=== PATIENT | male | born 1995 | race African-American/Black ===

== ENCOUNTER 2020-05-16 06:22 | Day surgery (SDC) | payer OTHER ==
[~2020-05-16] VITALS: Ht 172.7 cm; Wt 88.8 kg
[2020-05-16] MEDS ORDERED: dexameTHASONE 10MG/1ML VIAL PRES.FREE (J1100 PER 1MG) ONE (06:23)
[2020-05-16] MEDS ORDERED: EPINEPHrine INJ 1 MG/ML 1ML AMP ONE (06:23)
[2020-05-16] MEDS ORDERED: ROPIvacaine 0.5% 30ML INJECTION (J2795 PER 1MG) ONE (06:23)
[2020-05-16] MEDS ORDERED: LIDOCAINE 1% MDV 20ML VIAL ONE (06:23)
[2020-05-16] MEDS ORDERED: MIDAZOLAM INJ 2MG/2ML VIAL (J2250 PER 1MG) As Ordered ONE ×2 (06:42→07:00)
[2020-05-16] MEDS ORDERED: fentaNYL 100 MCG/2 ML INJECTION (J3010) As Ordered ONE (06:42)
[2020-05-16] MEDS ORDERED: fentaNYL 250 MCG/5 ML INJECTION (J3010) As Ordered ONE (07:00)
[2020-05-16] MEDS ORDERED: ROCURONIUM BROMIDE 50 MG/5 ML VIAL As Ordered ONE (07:00)
[2020-05-16] MEDS ORDERED: LR 1,000 ML IV ONE (07:00)
[2020-05-16] MEDS ORDERED: ceFAZolin SOD 2 GM in IV 1 EA IV ONE (07:00)
[2020-05-16] MEDS ORDERED: LIDOCAINE 2% 100MG/5ML SDV (FOR ANES.) As Ordered ONE (07:00)
[2020-05-16] MEDS ORDERED: propofoL 200 MG/20 ML VIAL As Ordered ONE (07:00)
[2020-05-16] MEDS ORDERED: EPINEPHrine 1MG/ML INJ 30ML MD-VIAL As Ordered ONE (07:13)
[2020-05-16] MEDS: fentaNYL 100 MCG/2 ML INJECTION (J3010) IV SCH ×2 (07:21→07:32)
[2020-05-16] MEDS ORDERED: MIDAZOLAM INJ 2MG/2ML VIAL (J2250 PER 1MG) IV ONE (07:45)
[2020-05-16] MEDS ORDERED: LABETALOL 100MG/20ML VIAL As Ordered ONE (07:50)
[2020-05-16] MEDS ORDERED: ONDANSETRON 4MG/2ML VIAL As Ordered ONE (08:29)
[2020-05-16] MEDS ORDERED: KETOROLAC 60MG 2ML VIAL As Ordered ONE (08:29)
[2020-05-16] MEDS ORDERED: ACETAMINOPHEN 1000MG 100ML IV BTL (OFIRMEV) (J0131 PER 10MG) As Ordered ONE (08:29)
[2020-05-16] MEDS ORDERED: dexameTHASONE 4 MG/ML 1ML VIAL (J1100 PER 1MG) As Ordered ONE (08:29)
[2020-05-16] MEDS ORDERED: NEOSTIGMINE 10MG/10ML VIAL (J2710 PER 0.5MG) As Ordered ONE (09:37)
[2020-05-16] MEDS ORDERED: GLYCOPYRROLATE INJ 0.2 MG/ML 2 ML VIAL As Ordered ONE (09:37)
[2020-05-16] MEDS ORDERED: ONDANSETRON 4MG/2ML VIAL IV PRN (10:15)
[2020-05-16] MEDS ORDERED: METOCLOPRAMIDE INJ 10MG/2ML VIAL (J2765 PER 1) IV PRN (10:15)
[2020-05-16] MEDS ORDERED: LR 1,000 ML IV SCH ×2 (10:15)
[2020-05-16] MEDS ORDERED: PERCOCET 5MG/325MG TAB PO PRN (10:15)
[2020-05-16] MEDS ORDERED: fentaNYL 100 MCG/2 ML INJECTION (J3010) IV PRN (10:15)
[2020-05-16] MEDS ORDERED: ePHEDrine SULFATE 25 MG/5 ML(5MG/ML) SYRINGE As Ordered ONE (12:10)
[2020-05-16 12:52] VITALS: BP 158/102
--- NOTE | 2020-05-26 17:14 | RO ---
DATE OF SURGERY: 05/16/2020 PREOPERATIVE DIAGNOSES: 1. Right shoulder instability. 2. Right shoulder impingement. POSTOPERATIVE DIAGNOSES: 1. Right shoulder anterior and posterior labral tearing with instability. 2. Right shoulder impingement. 3. Right shoulder partial articular rotator cuff tear. 4. Right shoulder glenohumeral chondromalacia. PROCEDURE: 1. Right shoulder arthroscopic anterior and posterior labral repair. 2. Right shoulder arthroscopic rotator cuff debridement. 3. Right shoulder arthroscopic chondroplasty. 4. Right shoulder arthroscopic subacromial decompression including bursectomy and acromioplasty. SURGEON: Dr. Moses Hernadez COLOR CHECKER ROVING OR YARN: Chantale Al (Kate) ANESTHESIA: General, preoperative nerve block. INTRAVENOUS (IV) FLUIDS: Lactated Ringer's. ESTIMATED BLOOD LOSS: Arthrex 3 mm SutureTak times one and Arthrex 2.9 mm PushLock times four with labral tape. CLOSURE: Nylon. PROCEDURE: Patient identified in preoperative holding area, the right shoulder marked by myself. He had an interscalene nerve block by anesthesia. He was brought the operating room, placed supine on well-padded operating room (OR) table. General anesthesia was induced. Exam under anesthesia revealed 170 degrees of forward flexion, 90 of external rotation, and a grade 2+ anterior and a grade 2 posterior load and shift. He was placed in the left side down lateral decubitus position with an axillary roll and all bony prominences were well padded. Bilateral Venodyne boots for deep venous thrombosis (DVT) prophylaxis. The right arm was placed into the Arthrex STaR sleeve lateral decubitus traction flowers 10 pounds of traction. The right shoulder was then prepped and draped in normal sterile fashion with ChloraPrep. He received appropriate IV antibiotics within 1 hour of incision. Time-out performed per hospital protocol. Anne was present for the entire procedure and participated in all essential portions of the procedure. It was crucial having a skilled medical technician assistant to provide axial traction and rotation to the arm during drilling for the anchors, suture passage with the SutureLasso, suture retrieval, and holding the arthroscope. The shoulder was insufflated with lactated Ringer's. A standard posterior viewing portal made with an 11-blade. 30 degrees arthroscope introduced into the joint. Diagnostic arthroscopy carried out. The patient had several areas of grade 2 chondromalacia in the glenoid, one at the equator anteriorly, then a few thin flaps centrally. The humeral head had a partial thickness chondral flap in the posterior humeral head and then some thinner flaps posteriorly as well. There was a partial articular tear of the supraspinatus. Long head of the biceps appeared unremarkable. Subscap appeared pristine. An anterior working portal was established just off the subscapularis, and a purple Arthrex cannula placed. The shaver was used to debride the rotator cuff tear. I would estimate this to be about a 20% tear. Subscapularis did not lift off with the posterior lever push maneuver. Long head of the biceps was stable on probing. There was a type 1 SLAP tear. There was tearing of the anterior-inferior labrum extending from the 4-o'clock position and then the tear wrapped all the way around the back to the 9-o'clock position. The shaver was used to debride the free edge labral tearing and then perform a chondroplasty. An accessory superolateral portal was placed also through the rotator interval just anterior to the biceps. The hooked labral cautery was used to develop the plane between the anterior-inferior labrum and articular cartilage. Labral elevators were then used to subperiosteally elevate capsule and labrum off the anterior glenoid neck. Ring curette was used to create a bleeding surface on the anterior glenoid neck. I then drilled and placed a 3 mm Arthrex SutureTak anchor at the 5-o'clock position. SutureLasso was used to shuttle the TigerWire sutures through the anterior-inferior labrum making sure to grasp the anterior band of the inferior glenohumeral ligament around the 5:30-position. Sutures were then tied using alternating half-hitch technique with a knot pusher as my research assistant applied a posterior vector to the proximal humerus. This nicely restored the anterior-inferior bumper. Sutures cut with a template cutter. The other suture was unloaded. Next, the lasso was used to shuttle labral tape through capsule and labrum and I drilled and placed the anchors at the 4- and 3-o'clock position. There was excellent fixation with these anchors and a nice jehovah's witness of the anterior bumper. The scope was placed into the anterior-superior portal and now the humeral head was nicely centered on the glenoid. There was extensive posterior labral tearing again wrapping around to the 9-o'clock position. The shaver was used through my posterior portal to debride the free edge tearing. Chondroplasty of posterior humeral head as well. Given the patient's positive posterior load and shift test and extensive labral tearing, I felt that he required stabilization posteriorly as well. So, I then used a SutureLasso to shuttle labral tape through the posterior-inferior capsule and labrum after the elevator had been used to subperiosteally dissect. Two anchors were placed in total, again biocomposite PushLocks with labral tape, one at the 7-o'clock position and the other at the 8-o'clock position. This nicely restored the bumper. I did ensure only a modest grasp of capsules so as to not over tighten him. Shoulder was irrigated and drained. Humeral head nicely centered on the glenoid. Arthroscope placed in the subacromial space, where there is extensive bursitis. Through a lateral working portal, I performed a bursectomy. No bursal-sided rotator cuff tearing. There was a moderate-sized subacromial spur and so the bur was used to perform a formal acromioplasty turning this into a type 1 morphology. Shoulder was irrigated and drained. Portals closed with nylon suture. Bulky sterile dressing applied. He is then carefully placed into the ARC2 sling in the gunslinger position. DISPOSITION: Patient will be starting physical therapy at [facility]. He must start the week of May 26. Please see the [facility] anterior and posterior combined labral repair protocol. Please contact Nabeel or Quan for any questions about which protocol to use. Patient will be using the sling at all times except for showering and physical therapy for the first 5-6 weeks.
== END 2020-05-16 13:05 | disposition home or self-care (01) ==
LOC: M SDC 06:22
PROVIDERS: ATTEND Orthopaedic Surgery
DX: S43.431A Superior glenoid labrum lesion of right shoulder, initial encounter (principal); X58.XXXA Exposure to other specified factors, initial encounter; Y92.89 Other specified places as the place of occurrence of the external cause; Y93.9 Activity, unspecified; Y99.9 Unspecified external cause status; M75.41 Impingement syndrome of right shoulder
CPT/HCPCS: 29807; 29823; 29826; 64415; C1713; J0131; J0171; J0690; J1100; J1885; J2250; J2405; J2710; J2795; J3010